=== PATIENT | female | born 1945 | race Caucasian/White ===

== ENCOUNTER 2020-04-18 12:13 | Emergency (ER) | payer OTHER, MEDICARE ==
[~2020-04-18] VITALS: Ht 160 cm; Wt 75.0 kg
[2020-04-18 13:21] LABS: HEMATOCRIT 36.6 % (37.0-47.0); HEMOGLOBIN 11.9 g/dl (12.0-16.0); IMMATURE GRANULOCYTES 1.3 % (0.0-5.0); MEAN CORPUSCULAR HGB 29.6 pG CALC (26.0-32.0); MEAN CORPUSCULAR HGB CONC 32.5 g/dL CAL (32.0-36.0); NEUT# 4.38 thou/uL (2.00-7.15); RED BLOOD COUNT 4.02 mill/uL (4.20-5.60); RED CELL DISTRI WIDTH 12.9 % (11.5-15.5)
[2020-04-18 13:28] LABS: ALBUMIN 4.4 g/dL (3.2-5.0); ALKALINE PHOSPHATASE 75 u/l (38-126); ANION GAP 10 (6-22 (CALC)); BILIRUBIN, TOTAL 0.8 mg/dL (0.0-1.4); BUN 21 mg/dL (8-23); BUN/CREATININE RATIO 22 (12-20 (CALC)); CARBON DIOXIDE 28 mmol/l (22-30); CHLORIDE 103 mmol/l (95-108); GFR 54 ML/MIN (>=60 (CALC)); GFR FOR AFR.AMER. > 60 ML/MIN (>=60 (CALC)); POTASSIUM 3.6 mmol/l (3.5-5.1); SGOT/AST 23 u/l (9-36); SODIUM 137 mmol/l (137-146); TOTAL PROTEIN 7.1 g/dL (6.3-8.2)
[2020-04-18 13:39] LABS: MYOGLOBIN 36 ng/mL (0 - 62)
[2020-04-18] MEDS ORDERED: CLONIDINE0.2 MG PO (14:31)
[2020-04-18] MEDS ORDERED: NAPROXEN500 MG PO (14:31)
[2020-04-18 19:20] VITALS: BP 189/100
== END 2020-04-18 19:21 | disposition home or self-care (01) | DRG 313 ==
LOC: EDBD 12:13 → ED 12:13
PROVIDERS: Emergency Medicine
DX: R07.9 Chest pain, unspecified (principal); N81.10 Cystocele, unspecified; I10 Essential (primary) hypertension; V49.50XA Passenger injured in collision with unspecified motor vehicles in traffic accident, initial encounter
CPT/HCPCS: Q9967

== ENCOUNTER 2022-03-22 14:00 | Emergency (ER) | payer MEDICARE ==
[2022-03-22] VITALS (11 sets, daily range): BP systolic 150–233; BP diastolic 95–134
[~2022-03-22] VITALS: Ht 160 cm; Wt 82.0 kg
[~2022-03-22 14:00] MED LIST: CLONIDINE0.2 MG PO; NAPROXEN500 MG PO
[2022-03-22 14:49] LABS: HEMOGLOBIN 11.6 g/dl (12.0-16.0); IMMATURE GRANULOCYTES 0.2 % (0.0-5.0); MEAN CELL VOLUME 94.4 fL CALC (80.0-100.0); MEAN CORPUSCULAR HGB 29.6 pG CALC (26.0-32.0); MEAN CORPUSCULAR HGB CONC 31.4 g/dL CAL (32.0-36.0); NEUT# 3.3 thou/uL (2.00-7.15); RED BLOOD COUNT 3.92 mill/uL (4.20-5.60); RED CELL DISTRI WIDTH 12.9 % (11.5-15.5)
[2022-03-22 14:49] LABS: URINE BILIRUBIN - DIPSTICK NEGATIVE (NEGATIVE); URINE BLOOD DIPSTICK TRACE-INTACT (NEGATIVE); URINE COLOR YELLOW; URINE GLUCOSE - DIPSTICK NEGATIVE (NEGATIVE); URINE KETONE NEGATIVE (NEGATIVE); URINE LEUK ESTERASE NEGATIVE (NEGATIVE); URINE NITRITE - DIPSTICK NEGATIVE (Negative); URINE PROTEIN - DIPSTICK NEGATIVE (NEG-TRACE); URINE SPECIFIC GRAVITY 1.015; URINE UROBILINOGEN - DIPSTICK 0.2 E.U./dL (0.2)
[2022-03-22 15:05] LABS: ALBUMIN 4.2 g/dL (3.2-5.0); ALKALINE PHOSPHATASE 66 u/l (38-126); ANION GAP 10 (6-22 (CALC)); BUN 31 mg/dL (8-23); BUN/CREATININE RATIO 30 (12-20 (CALC)); CARBON DIOXIDE 28 mmol/l (22-30); CHLORIDE 98 mmol/l (95-108); GFR 54 ML/MIN (>=60 (CALC)); GFR FOR AFR.AMER. > 60 ML/MIN (>=60 (CALC)); LIPASE 220 u/l (23-300); POTASSIUM 3.5 mmol/l (3.5-5.1); SGOT/AST 25 u/l (9-36); SODIUM 133 mmol/l (137-146)
[2022-03-22 15:06] LABS: BILIRUBIN, TOTAL 0.3 mg/dL (0.0-1.4)
[2022-03-22 15:08] LABS: ACT PARTIAL THROMBO TIME 22.6 SECONDS (20.0-32.5); PROTHROMBIN TIME 10.2 SECONDS (9.0-12.5)
== END 2022-03-22 18:56 ==
LOC: ED 14:00
DX: I10 Essential (primary) hypertension (principal); F03.90 Unspecified dementia, unspecified severity, without behavioral disturbance, psychotic disturbance, mood disturbance, and anxiety; N81.4 Uterovaginal prolapse, unspecified
CPT/HCPCS: J2060

== ENCOUNTER 2022-05-31 01:19 | Emergency (ER) | payer MEDICARE ==
[~2022-05-31] VITALS: Ht 160 cm; Wt 81.0 kg
[2022-05-31] VITALS (8 sets, daily range): BP systolic 173–194; BP diastolic 87–123
== END 2022-05-31 04:09 | disposition home or self-care (01) ==
LOC: ED 01:19
DX: S29.012A Strain of muscle and tendon of back wall of thorax, initial encounter (principal); I10 Essential (primary) hypertension; F03.90 Unspecified dementia, unspecified severity, without behavioral disturbance, psychotic disturbance, mood disturbance, and anxiety; W01.0XXA Fall on same level from slipping, tripping and stumbling without subsequent striking against object, initial encounter; Y92.099 Unspecified place in other non-institutional residence as the place of occurrence of the external cause

== ENCOUNTER 2022-11-11 11:06 | Emergency (ER) | payer MEDICARE ==
[~2022-11-11] VITALS: Ht 160 cm; Wt 60.0 kg
[~2022-11-11 11:06] MED LIST changes: +AMLODIPINE BESYL5 MG PO; +ESCITALOPRAM OX10 MG PO; +HYDROCHLOROT25 MG PO; +NITROFURANTN100 M2 PO; +QUETIAPINE FUMA25 MG PO
[2022-11-11 11:11] VITALS: BP 157/84
[2022-11-11 11:39] LABS: BASO% 0.6 % (0-3); EOS% 2.9 % (0-8); HEMATOCRIT 33.3 % (37.0-47.0); HEMOGLOBIN 11.1 g/dl (12.0-16.0); IMMATURE GRANULOCYTES 0.1 % (0.0-5.0); LYMPH% 17.8 % (15-41); MEAN CORPUSCULAR HGB 30.7 pG CALC (26.0-32.0); MEAN CORPUSCULAR HGB CONC 33.3 g/dL CAL (32.0-36.0); MONO% 6.6 % (2-13); NEUT# 5.15 thou/uL (2.00-7.15); RED BLOOD COUNT 3.62 mill/uL (4.20-5.60); RED CELL DISTRI WIDTH 13.3 % (11.5-15.5)
[2022-11-11 11:52] LABS: ALBUMIN 3.8 g/dL (3.2-5.0); ALKALINE PHOSPHATASE 103 u/l (38-126); ANION GAP 8 (6-22 (CALC)); BUN 20 mg/dL (8-23); BUN/CREATININE RATIO 30 (12-20 (CALC)); CARBON DIOXIDE 29 mmol/l (22-30); CHLORIDE 100 mmol/l (95-108); CREATININE 0.7 mg/dL (0.5-1.0); GFR FOR AFR.AMER. > 60 ML/MIN (>=60 (CALC)); GFR OTHER RACES > 60 ML/MIN (>=60 (CALC)); POTASSIUM 3.8 mmol/l (3.5-5.1); SGOT/AST 24 u/l (9-36); SODIUM 134 mmol/l (137-146); TOTAL PROTEIN 6.3 g/dL (6.3-8.2)
[2022-11-11 11:53] LABS: BILIRUBIN, TOTAL 0.3 mg/dL (0.0-1.4)
== END 2022-11-11 13:45 | disposition home or self-care (01) ==
LOC: ED 11:06
PROVIDERS: Emergency Medicine
DX: T17.908A Unspecified foreign body in respiratory tract, part unspecified causing other injury, initial encounter (principal); I10 Essential (primary) hypertension; F03.90 Unspecified dementia, unspecified severity, without behavioral disturbance, psychotic disturbance, mood disturbance, and anxiety; X58.XXXA Exposure to other specified factors, initial encounter

== ENCOUNTER 2023-01-14 14:23 | Emergency (ER) | payer MEDICARE ==
[2023-01-14] VITALS (7 sets, daily range): BP systolic 135–157; BP diastolic 83–95
[~2023-01-14] VITALS: Ht 160 cm; Wt 56.9 kg
== END 2023-01-14 16:37 ==
LOC: ED 14:23
DX: M54.9 Dorsalgia, unspecified (principal); F03.90 Unspecified dementia, unspecified severity, without behavioral disturbance, psychotic disturbance, mood disturbance, and anxiety; I10 Essential (primary) hypertension

== ENCOUNTER 2023-01-17 11:09 | Observation (INO) | payer MEDICARE ==
[2023-01-17] VITALS (21 sets, daily range): BP systolic 115–143; BP diastolic 73–92
[~2023-01-17] VITALS: Ht 160 cm; Wt 68.0 kg
[2023-01-17] MEDS ORDERED: NITROFURANTN100 MG PO (11:24)
[2023-01-17] MEDS ORDERED: PHENAZOPYRIDIN100 M1 PO (11:25)
[2023-01-17 12:02] LABS: URINE BLOOD DIPSTICK NEGATIVE (NEGATIVE); URINE GLUCOSE - DIPSTICK 100 mg/dL (NEGATIVE); URINE KETONE TRACE mg/dL (NEGATIVE); URINE LEUK ESTERASE NEGATIVE (NEGATIVE); URINE PROTEIN - DIPSTICK 30 mg/dL (NEG-TRACE)
[2023-01-17 12:03] LABS: BASO% 0.1 % (0-3); EOS% 0.1 % (0-8); HEMOGLOBIN 12.8 g/dl (12.0-16.0); IMMATURE GRANULOCYTES 0.1 % (0.0-5.0); LYMPH% 6.9 % (15-41); MEAN CELL VOLUME 89.4 fL CALC (80.0-100.0); MEAN CORPUSCULAR HGB CONC 32.4 g/dL CAL (32.0-36.0); MONO% 8.8 % (2-13); NEUT# 11.52 thou/uL (2.00-7.15); RED BLOOD COUNT 4.42 mill/uL (4.20-5.60)
[2023-01-17 12:08] LABS: URINE BILIRUBIN - DIPSTICK SMALL (NEGATIVE)
[2023-01-17 12:10] LABS: URINE COLOR ORANGE; URINE NITRITE - DIPSTICK POSITIVE (Negative)
[2023-01-17 12:11] LABS: URINE BACTERIA FEW hpf; URINE WBC 0-2 WBC/hpf (0-5)
[2023-01-17 12:15] LABS: HEMATOCRIT 39.5 % (37.0-47.0)
[2023-01-17 12:22] LABS: ALBUMIN 3.9 g/dL (3.2-5.0); ALKALINE PHOSPHATASE 100 u/l (38-126); ANION GAP 12 (6-22 (CALC)); BUN 65 mg/dL (8-23); BUN/CREATININE RATIO 72 (12-20 (CALC)); CARBON DIOXIDE 33 mmol/l (22-30); CHLORIDE 89 mmol/l (95-108); CREATININE 0.9 mg/dL (0.5-1.0); GFR FOR AFR.AMER. > 60 ML/MIN (>=60 (CALC)); GFR OTHER RACES 60 ML/MIN (>=60 (CALC)); POTASSIUM 3.4 mmol/l (3.5-5.1); SGOT/AST 42 u/l (9-36); SODIUM 131 mmol/l (137-146); TOTAL PROTEIN 7.4 g/dL (6.3-8.2)
[2023-01-17 12:23] LABS: BILIRUBIN, TOTAL 0.6 mg/dL (0.02-1.3)
[2023-01-18 02:57] VITALS: BP 128/76
[2023-01-18 05:21] VITALS: BP 127/79
[2023-01-18 05:47] LABS: HEMOGLOBIN 11.6 g/dl (12.0-16.0); MEAN CORPUSCULAR HGB CONC 32.2 g/dL CAL (32.0-36.0)
[2023-01-18 05:53] LABS: ALKALINE PHOSPHATASE 87 u/l (38-126); ANION GAP 11 (6-22 (CALC)); BILIRUBIN, TOTAL 0.4 mg/dL (0.02-1.3); BUN 58 mg/dL (8-23); BUN/CREATININE RATIO 79 (12-20 (CALC)); CARBON DIOXIDE 30 mmol/l (22-30); CHLORIDE 95 mmol/l (95-108); CREATININE 0.7 mg/dL (0.5-1.0); GFR FOR AFR.AMER. > 60 ML/MIN (>=60 (CALC)); GFR OTHER RACES > 60 ML/MIN (>=60 (CALC)); MAGNESIUM 2.6 mg/dL (1.6-2.3); POTASSIUM 3.1 mmol/l (3.5-5.1); SGOT/AST 36 u/l (9-36); SODIUM 133 mmol/l (137-146)
[2023-01-18 06:04] LABS: ALBUMIN 3.1 g/dL (3.2-5.0); TOTAL PROTEIN 5.8 g/dL (6.3-8.2)
[2023-01-18 09:17] VITALS: BP 130/75
[2023-01-18 13:37] VITALS: BP 128/73
[2023-01-18 17:50] VITALS: BP 117/71
[2023-01-18 23:10] VITALS: BP 124/77
[2023-01-19 03:26] VITALS: BP 126/69
[2023-01-19 05:45] VITALS: BP 135/79
[2023-01-19 07:30] LABS: MEAN CELL VOLUME 90.9 fL CALC (80.0-100.0); MEAN CORPUSCULAR HGB 29.4 pG CALC (26.0-32.0); MEAN CORPUSCULAR HGB CONC 32.4 g/dL CAL (32.0-36.0); RED BLOOD COUNT 3.74 mill/uL (4.20-5.60)
[2023-01-19 07:53] LABS: ALBUMIN 2.7 g/dL (3.2-5.0); ALKALINE PHOSPHATASE 85 u/l (38-126); ANION GAP 8 (6-22 (CALC)); BILIRUBIN, TOTAL 0.4 mg/dL (0.02-1.3); CARBON DIOXIDE 28 mmol/l (22-30); CHLORIDE 96 mmol/l (95-108); CREATININE 0.6 mg/dL (0.5-1.0); GFR FOR AFR.AMER. > 60 ML/MIN (>=60 (CALC)); GFR OTHER RACES > 60 ML/MIN (>=60 (CALC)); MAGNESIUM 2.1 mg/dL (1.6-2.3); POTASSIUM 3.4 mmol/l (3.5-5.1); SGOT/AST 33 u/l (9-36); SODIUM 129 mmol/l (137-146); TOTAL PROTEIN 5.2 g/dL (6.3-8.2)
[2023-01-19 08:10] LABS: BUN 35 mg/dL (8-23); BUN/CREATININE RATIO 58 (12-20 (CALC))
[2023-01-19 09:55] VITALS: BP 133/79
[2023-01-19 17:48] VITALS: BP 148/93
[2023-01-19 23:08] VITALS: BP 138/82
[2023-01-20 03:02] VITALS: BP 135/78
[2023-01-20 05:31] VITALS: BP 144/86
[2023-01-20 06:24] LABS: HEMATOCRIT 34.4 % (37.0-47.0); HEMOGLOBIN 11.1 g/dl (12.0-16.0); MEAN CELL VOLUME 89.8 fL CALC (80.0-100.0); MEAN CORPUSCULAR HGB CONC 32.3 g/dL CAL (32.0-36.0); RED BLOOD COUNT 3.83 mill/uL (4.20-5.60); RED CELL DISTRI WIDTH 12.9 % (11.5-15.5)
[2023-01-20 06:35] LABS: ALBUMIN 2.9 g/dL (3.2-5.0); ALKALINE PHOSPHATASE 96 u/l (38-126); ANION GAP 8 (6-22 (CALC)); BILIRUBIN, TOTAL 0.4 mg/dL (0.02-1.3); BUN 32 mg/dL (8-23); BUN/CREATININE RATIO 55 (12-20 (CALC)); CARBON DIOXIDE 29 mmol/l (22-30); CHLORIDE 97 mmol/l (95-108); CREATININE 0.6 mg/dL (0.5-1.0); GFR FOR AFR.AMER. > 60 ML/MIN (>=60 (CALC)); GFR OTHER RACES > 60 ML/MIN (>=60 (CALC)); MAGNESIUM 2.1 mg/dL (1.6-2.3); POTASSIUM 3.6 mmol/l (3.5-5.1); SGOT/AST 30 u/l (9-36); SODIUM 130 mmol/l (137-146); TOTAL PROTEIN 5.7 g/dL (6.3-8.2)
[2023-01-20 09:31] VITALS: BP 118/71
[2023-01-20 13:06] VITALS: BP 127/77
[2023-01-20 19:35] VITALS: BP 150/83
[2023-01-21 03:45] VITALS: BP 141/81
[2023-01-21 05:36] VITALS: BP 149/84
[2023-01-21 09:07] VITALS: BP 118/75
[2023-01-21 13:37] VITALS: BP 134/74
[2023-01-22] VITALS (7 sets, daily range): BP systolic 123–140; BP diastolic 68–80
[2023-01-23 04:00] VITALS: BP 149/94
[2023-01-23 04:59] VITALS: BP 149/94
[2023-01-23 11:00] VITALS: BP 149/84
[2023-01-23 18:32] VITALS: BP 138/81
[2023-01-24] VITALS (7 sets, daily range): BP systolic 102–160; BP diastolic 59–96
[2023-01-25] VITALS (8 sets, daily range): BP systolic 108–141; BP diastolic 66–88
[2023-01-25 10:40] LABS: HEMATOCRIT 34.8 % (37.0-47.0); HEMOGLOBIN 11.2 g/dl (12.0-16.0); MEAN CELL VOLUME 90.2 fL CALC (80.0-100.0); MEAN CORPUSCULAR HGB CONC 32.2 g/dL CAL (32.0-36.0); RED BLOOD COUNT 3.86 mill/uL (4.20-5.60)
[2023-01-25 10:47] LABS: ALBUMIN 2.5 g/dL (3.2-5.0); ALKALINE PHOSPHATASE 116 u/l (38-126); ANION GAP 8 (6-22 (CALC)); BUN 15 mg/dL (8-23); BUN/CREATININE RATIO 25 (12-20 (CALC)); CARBON DIOXIDE 30 mmol/l (22-30); CHLORIDE 93 mmol/l (95-108); CREATININE 0.6 mg/dL (0.5-1.0); GFR FOR AFR.AMER. > 60 ML/MIN (>=60 (CALC)); GFR OTHER RACES > 60 ML/MIN (>=60 (CALC)); MAGNESIUM 1.9 mg/dL (1.6-2.3); POTASSIUM 4.1 mmol/l (3.5-5.1); SGOT/AST 38 u/l (9-36); SODIUM 127 mmol/l (137-146)
[2023-01-25 10:50] LABS: BILIRUBIN, TOTAL 0.1 mg/dL (0.02-1.3)
[2023-01-26 00:50] VITALS: BP 132/80
[2023-01-26 03:37] VITALS: BP 121/67
[2023-01-26 07:05] VITALS: BP 128/89
[2023-01-26 08:42] VITALS: BP 136/94
[2023-01-26 10:46] VITALS: BP 121/82
[2023-01-26 15:20] VITALS: BP 122/71
== END 2023-01-26 17:24 ==
LOC: ED 11:09 → ED-I 13:58 → ED 14:19 → MS2 14:20
PROVIDERS: Family Medicine; ADMIT Internal Medicine; ATTEND Internal Medicine
DX: N39.0 Urinary tract infection, site not specified (principal); G93.49 Other encephalopathy; I10 Essential (primary) hypertension; F03.90 Unspecified dementia, unspecified severity, without behavioral disturbance, psychotic disturbance, mood disturbance, and anxiety; M16.12 Unilateral primary osteoarthritis, left hip; M54.9 Dorsalgia, unspecified; K40.20 Bilateral inguinal hernia, without obstruction or gangrene, not specified as recurrent; M62.462 Contracture of muscle, left lower leg; E44.0 Moderate protein-calorie malnutrition; E88.09 Other disorders of plasma-protein metabolism, not elsewhere classified; E87.1 Hypo-osmolality and hyponatremia; L89.153 Pressure ulcer of sacral region, stage 3; L89.302 Pressure ulcer of unspecified buttock, stage 2; L89.611 Pressure ulcer of right heel, stage 1; F32.A Depression, unspecified; Z20.822 Contact with and (suspected) exposure to COVID-19
CPT/HCPCS: J1650